=== PATIENT | female | born 1940 | race Caucasian/White ===

== ENCOUNTER 2019-05-19 15:05 | Inpatient (IN) | payer MEDICARE, BC ==
[~2019-05-19] VITALS: Ht 160 cm; Wt 87.5 kg
[2019-05-19] MEDS ORDERED: methylPREDNISolone sod succ 125mg/2ml vial IV ONE (15:15)
[2019-05-19] MEDS ORDERED: ipratropium/albuterol 3ml nebule NEB ONE (15:15)
[2019-05-19 15:41] LABS: ABG BASE EXCESS -0.2 mmol/L (-2.0-3.0); ABG HCO3 23.4 mmol/L (22.0-26.0); ABG OXYGEN SATURATION 93.9 % (95-98); ABG PCO2 (T) 35.4 mmHg (35.0-45.0); ABG PH (T) 7.439 (7.350-7.450); ABG PO2 (T) 66.4 mmHg (83-108); ALLEN'S TEST Positive; FCOHb 1.1 % (0.5-1.5); FMetHb 0.2 % (0.3-1.12); FO2Hb 92.7 % (94-100); TOTAL HEMOGLOBIN 14.9 G/dl (12.0-16.0)
[2019-05-19 16:13] LABS: BASOPHILS # (AUTO) 0.2 X10'3 (0-0.2); BASOPHILS % (AUTO) 1.3 % (0-1); EOSINOPHILS # (AUTO) 0.2 X10'3 (0-0.9); EOSINOPHILS % (AUTO) 1.8 % (0-6); HEMATOCRIT 41.9 % (35.0-45.0); HEMOGLOBIN 14.2 g/dl (12.0-16.0); LYMPHOCYTES # (AUTO) 1.5 X10'3 (1.1-4.8); LYMPHOCYTES % (AUTO) 11.2 % (21-51); MEAN CORPUSCULAR HEMOGLOBIN 30.2 PG (27.0-31.0); MEAN CORPUSCULAR VOLUME 88.7 FL (78-98); MEAN PLATELET VOLUME 7.2 FL (7.4-10.4); MONOCYTES # (AUTO) 1.3 X10'3 (0-0.9); NEUTROPHILS # (AUTO) 10.1 X10'3 (1.8-7.7); NEUTROPHILS % (AUTO) 75.7 % (42-75); PLATELET COUNT 354 X10'3 (140-440); RED BLOOD COUNT 4.72 X10'6 (4.20-5.60); RED CELL DISTRIBUTION WIDTH 12.9 % (11.5-14.5); WHITE BLOOD COUNT 13.3 X10'3 (4.5-11.0)
[2019-05-19] MEDS ORDERED: GABA-532 PO (16:13)
[2019-05-19] MEDS ORDERED: LOSA25TA96 PO (16:13)
[2019-05-19] MEDS ORDERED: DULO-31 PO (16:13)
[2019-05-19] MEDS ORDERED: azithromycin/NS 500mg/250ml 250 ML IV ONE (16:20)
[2019-05-19] MEDS ORDERED: CefTRIAXone/D5W-Rocephin 1gm 50 ML IV ONE (16:20)
[2019-05-19] MEDS ORDERED: normal saline 1000ML IV soln IVB ONE (16:25)
[2019-05-19 16:32] LABS: ALANINE AMINOTRANSFERASE 15 U/L (12-78); ALBUMIN/GLOBULIN RATIO 0.8 (1.1-1.5); ALKALINE PHOSPHATASE 84 IU/L (46-116); ANION GAP 7 (8-16); ASPARTATE AMINO TRANSFERASE 21 U/L (10-37); BILIRUBIN,TOTAL 0.6 MG/DL (0.1-1.0); BLOOD UREA NITROGEN 6 MG/DL (7-18); BUN/CREATININE RATIO 8.3 (6.6-38.0); CALCIUM 9.9 MG/DL (8.5-10.1); CHLORIDE 93 MMOL/L (99-107); CREATININE 0.72 MG/DL (0.40-0.90); GLUCOSE 105 MG/DL (70-104); POTASSIUM 3.8 MMOL/L (3.5-5.1); SODIUM 129 MMOL/L (135-145); TOTAL CARBON DIOXIDE 29.2 MMOL/L (24-32); eGFR 78 ML/MIN
[2019-05-19 16:34] LABS: D-DIMER 3.05 MG/L FEU (0-0.50); PARTIAL THROMBOPLASTIN TIME 30 SECONDS (22-32)
[2019-05-19] MEDS ORDERED: iohexol 350MG/ML 100ml bottle IV ONE (16:42)
--- NOTE | 2019-05-19 18:26 | NUR ---
Patient is in bed with family at bedside. Family updated on POC. Patient requests bedpan which is provided. Family and patient prefer to place her on bedpan themselves. Dr. Chauhan to bedside.
--- NOTE | 2019-05-19 18:48 | NUR ---
Patient's heart rate increased to 140s and she became short of breath when she was assisted to bedpan. Spoke to Dr. Sunshine about a villeda catheter until she has her pleural effusion drained which he agrees to.
[2019-05-19] MEDS ORDERED: magnesium 2GM in 50ml NS 50 ML IV PRN (20:05)
[2019-05-19] MEDS ORDERED: ipratropium/albuterol 3ml nebule NEB PRN ×2 (20:05)
[2019-05-19] MEDS ORDERED: magnesium 4gm in 100ml NS 100 ML IV PRN (20:05)
[2019-05-19] MEDS ORDERED: ondansetron/PF 4mg/2ml inj IV PRN (20:05)
[2019-05-19] MEDS ORDERED: magnesium Cl slow-release 64mg tablet PO PRN (20:05)
[2019-05-19] MEDS ORDERED: acetaminophen 325mg tablet PO PRN (20:05)
[2019-05-19] MEDS ORDERED: potassium Cl 20 mEq SR tablet PO PRN ×2 (20:05)
[2019-05-19] MEDS ORDERED: potassium CL 10mEq/100ml bag 100 ML IV PRN ×2 (20:05)
[2019-05-19] MEDS ORDERED: HYDROcodone/acetaminophen 5mg/325mg tablet PO PRN (20:05)
[2019-05-19] MEDS ORDERED: morphine 2 MG/ML inj. syringe IV PRN (20:05)
--- NOTE | 2019-05-19 20:11 | NUR ---
Patient resting comfortably in bed with family at bedside. She is hungry but doesn't feel like she can eat much. She requests jello which is provided. Patient and family updated on POC.
[2019-05-19 21:00] VITALS: BP 146/92
[2019-05-19] MEDS: famotidine 20mg tablet PO SCH (21:00)
--- NOTE | 2019-05-19 21:00 | NUR ---
Patient in room PCU 3012. I have received report from Mauro FERNANDEZ from ER before patient came up to unit and had the opportunity to ask questions and assume patient care. All personal affects in the closet, cellphone at bedside, patient is comfortable in bed and able to use call light appropriately.
[2019-05-19 22:00] VITALS: BP 146/87
[2019-05-20] VITALS (11 sets, daily range): BP systolic 103–170; BP diastolic 61–100
--- NOTE | 2019-05-20 05:00 | NUR ---
END NOC NOTE Patient has been able to sleep tonight with SCD on bilateral legs. Will continue to monitor.
[2019-05-20 06:16] LABS: BASOPHILS % (AUTO) 0.4 % (0-1); EOSINOPHILS % (AUTO) 0.1 % (0-6); HEMATOCRIT 43.6 % (35.0-45.0); HEMOGLOBIN 14.8 g/dl (12.0-16.0); LYMPHOCYTES # (AUTO) 0.8 X10'3 (1.1-4.8); LYMPHOCYTES % (AUTO) 6.6 % (21-51); MEAN CORPUSCULAR HEMOGLOBIN 30.4 PG (27.0-31.0); MEAN CORPUSCULAR VOLUME 89.3 FL (78-98); MEAN PLATELET VOLUME 7.7 FL (7.4-10.4); MONOCYTES # (AUTO) 0.8 X10'3 (0-0.9); MONOCYTES % (AUTO) 6.5 % (2-12); NEUTROPHILS # (AUTO) 10.4 X10'3 (1.8-7.7); NEUTROPHILS % (AUTO) 86.4 % (42-75); PLATELET COUNT 353 X10'3 (140-440); RED BLOOD COUNT 4.88 X10'6 (4.20-5.60); RED CELL DISTRIBUTION WIDTH 12.9 % (11.5-14.5); WHITE BLOOD COUNT 12.1 X10'3 (4.5-11.0)
[2019-05-20 06:21] LABS: ANION GAP 10 (8-16); BLOOD UREA NITROGEN 5 MG/DL (7-18); BUN/CREATININE RATIO 7.6 (6.6-38.0); CALCIUM 10.8 MG/DL (8.5-10.1); CHLORIDE 95 MMOL/L (99-107); CREATININE 0.66 MG/DL (0.40-0.90); GLUCOSE 142 MG/DL (70-104); MAGNESIUM 1.7 MG/DL (1.5-2.4); POTASSIUM 4.1 MMOL/L (3.5-5.1); SODIUM 133 MMOL/L (135-145); TOTAL CARBON DIOXIDE 28.1 MMOL/L (24-32); eGFR 87 ML/MIN
--- NOTE | 2019-05-20 06:27 | NUR ---
170/100 MD Thomas notified of the high blood pressure, she doesn't take any blood pressure medications at home, and he stated to pass on to morning hospitalist. Cora FERNANDEZ was passed on this information.
--- NOTE | 2019-05-20 06:29 | NUR ---
Patient in room PCU 3012C. I have received report from Ana Laura FERNANDEZ and had the opportunity to ask questions and assume patient care.
--- NOTE | 2019-05-20 06:52 | NUR ---
Problems reprioritized. Patient report given, questions answered & plan of care reviewed with Cora FERNANDEZ.
[2019-05-20] MEDS: CefTRIAXone/D5W-Rocephin 1gm 50 ML IV SCH (07:27)
[2019-05-20] MEDS: K and/or MAG REPLACEMENT MC SCH (07:44)
[2019-05-20] MEDS ORDERED: hydrALAZINE 20mg/ml inj. IV ONE (07:55)
[2019-05-20] MEDS: azithromycin/NS 500mg/250ml 250 ML IV SCH (08:16)
--- NOTE | 2019-05-20 08:48 | NUR ---
Paged RT for breathing treatment RE Jake Wesley 5082C. PRN breathing treatment please. Thank you!
[2019-05-20] MEDS ORDERED: NYSTATIN CREAM - 30GM TUBE TP SCH ×2 (11:20→20:00)
[2019-05-20] MEDS ORDERED: XAL0.005OS OP (11:36)
--- NOTE | 2019-05-20 11:41 | NUR ---
Patient in process of chest tube being placed.
--- NOTE | 2019-05-20 12:20 | NUR ---
Right chest tube inserted and connected to suction. Dressing CDI. Sample collected by IR. Will continue to monitor closely
--- NOTE | 2019-05-20 12:50 | NUR ---
Chest tube output 2200 ml, atrium changed. Will continue to monitor closely
--- NOTE | 2019-05-20 12:59 | NUR ---
Malnutrition consult "decreased appetite 1 week": Pt admit w/ SOB past 10 days found to have large L pleural effusion pending thoracentesis and possible CT placement today per MD note. Normal strength noted w/ no edema/wounds present. Per RN; pt PO 50% all except oatmeal at breakfast today. Current wt 87.5kg bed scale first pt admit. Poor PO likely r/t SOB. BMI 34.2; well-nourished per MD note. At this time pt does not meet minimum 2 malnutrition criteria. Will continue to monitor. Addendum: 05/20/19 at [address] Amended: Links added.
--- NOTE | 2019-05-20 13:30 | NUR ---
Patient chest tube atrium was not tidaling. pole incisor operator and this RN replaced suction tubing and assessed atrium. Output continued to to fill at slow, steady rate. Called IR and Kaylynn stated to clamp tube to allow patient's body to stabilize due to high output of 2200 cc in less than one hour, and they would come assess atrium. IR came and looked at the chest tube site, tubing, and atrium, and stated that the lack of tidaling in the chamber was fine. They unclamped the tube (after 45 minutes clamped) and said it was fine to keep unclamped. Patient is stable, work of breathing is much improved, and will continue to monitor.
--- NOTE | 2019-05-20 18:15 | NUR ---
Problems reprioritized. Patient report given, questions answered & plan of care reviewed with Pablo RN.
--- NOTE | 2019-05-20 18:16 | NUR ---
Patient in room PCU 3012. I have received report from Cora FERNANDEZ and had the opportunity to ask questions and assume patient care.
[2019-05-20] MEDS: famotidine 20mg tablet PO SCH (20:29)
[2019-05-20] MEDS: lactobacillus rhamnosus 10,000 MMU CELLS/CAPSULE PO SCH (20:29)
[2019-05-20] MEDS: NYSTATIN CREAM - 30GM TUBE TP SCH (20:30)
[2019-05-21 02:30] VITALS: BP 132/67
[2019-05-21 05:47] LABS: BASOPHILS # (AUTO) 0.1 X10'3 (0-0.2); BASOPHILS % (AUTO) 0.6 % (0-1); EOSINOPHILS # (AUTO) 0.2 X10'3 (0-0.9); EOSINOPHILS % (AUTO) 1.4 % (0-6); HEMATOCRIT 40.3 % (35.0-45.0); HEMOGLOBIN 13.6 g/dl (12.0-16.0); LYMPHOCYTES # (AUTO) 1.6 X10'3 (1.1-4.8); LYMPHOCYTES % (AUTO) 12.3 % (21-51); MEAN CORPUSCULAR HEMOGLOBIN 30.2 PG (27.0-31.0); MEAN CORPUSCULAR HGB CONC 33.9 g/dL (33.0-36.5); MEAN CORPUSCULAR VOLUME 89.3 FL (78-98); MEAN PLATELET VOLUME 7.3 FL (7.4-10.4); MONOCYTES # (AUTO) 1.7 X10'3 (0-0.9); MONOCYTES % (AUTO) 12.5 % (2-12); NEUTROPHILS # (AUTO) 9.8 X10'3 (1.8-7.7); NEUTROPHILS % (AUTO) 73.2 % (42-75); PLATELET COUNT 349 X10'3 (140-440); RED BLOOD COUNT 4.51 X10'6 (4.20-5.60); RED CELL DISTRIBUTION WIDTH 13.3 % (11.5-14.5); WHITE BLOOD COUNT 13.4 X10'3 (4.5-11.0)
[2019-05-21 06:01] LABS: ALBUMIN 2.6 G/DL (3.4-5.0); ANION GAP 6 (8-16); BLOOD UREA NITROGEN 10 MG/DL (7-18); BUN/CREATININE RATIO 14.9 (6.6-38.0); CHLORIDE 93 MMOL/L (99-107); CREATININE 0.67 MG/DL (0.40-0.90); GLUCOSE 101 MG/DL (70-104); MAGNESIUM 1.6 MG/DL (1.5-2.4); POTASSIUM 3.8 MMOL/L (3.5-5.1); SODIUM 127 MMOL/L (135-145); TOTAL CARBON DIOXIDE 27.6 MMOL/L (24-32); eGFR 85 ML/MIN
--- NOTE | 2019-05-21 06:14 | NUR ---
Patient in room PCU 3012C. I have received report from Pablo RN and had the opportunity to ask questions and assume patient care.
--- NOTE | 2019-05-21 06:23 | NUR ---
Problems reprioritized. Patient report given, questions answered & plan of care reviewed with Cora FERNANDEZ.
[2019-05-21 06:30] VITALS: BP 118/50
[2019-05-21] MEDS: CefTRIAXone/D5W-Rocephin 1gm 50 ML IV SCH (07:10)
[2019-05-21] MEDS: lactobacillus rhamnosus 10,000 MMU CELLS/CAPSULE PO SCH ×2 (07:10→20:13)
[2019-05-21] MEDS: NYSTATIN CREAM - 30GM TUBE TP SCH ×3 (07:10→20:14)
[2019-05-21] MEDS: K and/or MAG REPLACEMENT MC SCH (08:00)
[2019-05-21] MEDS: azithromycin/NS 500mg/250ml 250 ML IV SCH (08:50)
[2019-05-21 11:00] VITALS: BP 152/84
[2019-05-21 15:00] VITALS: BP 154/87
--- NOTE | 2019-05-21 15:42 | NUR ---
Paged Dr Chauhan regarding med rec PAGER ID: [phone] MESSAGE: Cora trinh [phone]. RE Jake Wesley 3012C. Med rec needs to be addressed for pharmacy, thank you!
--- NOTE | 2019-05-21 18:29 | NUR ---
Problems reprioritized. Patient report given, questions answered & plan of care reviewed with Daniel FERNANDEZ.
--- NOTE | 2019-05-21 18:47 | NUR ---
Patient in room PCU 3012. I have received report from Cora FERNANDEZ and had the opportunity to ask questions and assume patient care.
[2019-05-21 19:00] VITALS: BP 139/73
[2019-05-21] MEDS: famotidine 20mg tablet PO SCH (20:13)
[2019-05-21 23:00] VITALS: BP 141/77
[2019-05-22 02:30] VITALS: BP 145/78
[2019-05-22 05:57] LABS: BASOPHILS # (AUTO) 0.1 X10'3 (0-0.2); BASOPHILS % (AUTO) 0.7 % (0-1); EOSINOPHILS # (AUTO) 0.3 X10'3 (0-0.9); EOSINOPHILS % (AUTO) 2.3 % (0-6); HEMATOCRIT 39.4 % (35.0-45.0); HEMOGLOBIN 13.3 g/dl (12.0-16.0); LYMPHOCYTES # (AUTO) 1.3 X10'3 (1.1-4.8); LYMPHOCYTES % (AUTO) 11.4 % (21-51); MEAN CORPUSCULAR HEMOGLOBIN 30.1 PG (27.0-31.0); MEAN CORPUSCULAR HGB CONC 33.8 g/dL (33.0-36.5); MEAN CORPUSCULAR VOLUME 89.1 FL (78-98); MEAN PLATELET VOLUME 7.7 FL (7.4-10.4); MONOCYTES # (AUTO) 1.6 X10'3 (0-0.9); MONOCYTES % (AUTO) 13.4 % (2-12); NEUTROPHILS # (AUTO) 8.4 X10'3 (1.8-7.7); NEUTROPHILS % (AUTO) 72.2 % (42-75); PLATELET COUNT 232 X10'3 (140-440); RED BLOOD COUNT 4.43 X10'6 (4.20-5.60); WHITE BLOOD COUNT 11.6 X10'3 (4.5-11.0)
[2019-05-22 06:00] VITALS: BP 105/58
[2019-05-22 06:00] LABS: ALBUMIN 2.4 G/DL (3.4-5.0); ANION GAP 9 (8-16); BLOOD UREA NITROGEN 6 MG/DL (7-18); BUN/CREATININE RATIO 10.9 (6.6-38.0); CALCIUM 9.1 MG/DL (8.5-10.1); CHLORIDE 97 MMOL/L (99-107); CREATININE 0.55 MG/DL (0.40-0.90); GLUCOSE 91 MG/DL (70-104); MAGNESIUM 1.6 MG/DL (1.5-2.4); POTASSIUM 3.8 MMOL/L (3.5-5.1); SODIUM 134 MMOL/L (135-145); TOTAL CARBON DIOXIDE 27.8 MMOL/L (24-32); eGFR > 90 ML/MIN
--- NOTE | 2019-05-22 06:15 | NUR ---
Patient in room PCU 3012. I have received report from Daniel FERNANDEZ and had the opportunity to ask questions and assume patient care.
--- NOTE | 2019-05-22 06:24 | NUR ---
Problems reprioritized. Patient report given, questions answered & plan of care reviewed with Alpesh FERNANDEZ.
[2019-05-22] MEDS: CefTRIAXone/D5W-Rocephin 1gm 50 ML IV SCH (07:49)
[2019-05-22] MEDS: lactobacillus rhamnosus 10,000 MMU CELLS/CAPSULE PO SCH ×2 (07:50→21:57)
[2019-05-22] MEDS: NYSTATIN CREAM - 30GM TUBE TP SCH ×2 (07:50→22:03)
[2019-05-22] MEDS: K and/or MAG REPLACEMENT MC SCH (08:00)
[2019-05-22] MEDS: azithromycin/NS 500mg/250ml 250 ML IV SCH (08:44)
[2019-05-22 11:00] VITALS: BP 133/85
[2019-05-22 15:00] VITALS: BP 149/75
[2019-05-22] MEDS: losartan 25mg tablet PO SCH (16:57)
--- NOTE | 2019-05-22 17:29 | NUR ---
Problems reprioritized. Patient report given, questions answered & plan of care reviewed with Anisa FERNANDEZ.
[2019-05-22 18:00] VITALS: BP 122/74
--- NOTE | 2019-05-22 18:12 | NUR ---
Problems reprioritized. Patient report given, questions answered & plan of care reviewed with Dennis FERNANDEZ. Patient stable at transfer of care.
--- NOTE | 2019-05-22 18:19 | NUR ---
Patient in room PCU 3012. I have received report from Anisa FERNANDEZ and had the opportunity to ask questions and assume patient care.
[2019-05-22] MEDS: gabapentin 300mg capsule PO SCH (21:58)
[2019-05-22] MEDS: latanoprost 0.005% 2.5ml ophthalmic drops EACHEYE SCH (21:58)
[2019-05-22] MEDS: duloxetine 30mg CAPSULE.DR PO SCH (21:58)
[2019-05-22] MEDS: famotidine 20mg tablet PO SCH (21:58)
[2019-05-22 22:00] VITALS: BP 136/64
[2019-05-23 02:00] VITALS: BP 141/73
[2019-05-23 05:48] LABS: ALBUMIN 2.1 G/DL (3.4-5.0); ANION GAP 11 (8-16); BLOOD UREA NITROGEN 4 MG/DL (7-18); CALCIUM 9.3 MG/DL (8.5-10.1); CHLORIDE 98 MMOL/L (99-107); GLUCOSE 97 MG/DL (70-104); MAGNESIUM 1.7 MG/DL (1.5-2.4); SODIUM 134 MMOL/L (135-145); TOTAL CARBON DIOXIDE 24.8 MMOL/L (24-32); eGFR > 90 ML/MIN
[2019-05-23 05:50] LABS: POTASSIUM 3.9 MMOL/L (3.5-5.1)
[2019-05-23 06:00] VITALS: BP 124/67
--- NOTE | 2019-05-23 06:00 | NUR ---
Patient in room PCU 3012. I have received report from Daniel FERNANDEZ and had the opportunity to ask questions and assume patient care.
--- NOTE | 2019-05-23 06:27 | NUR ---
Problems reprioritized. Patient report given, questions answered & plan of care reviewed with Fanny FERNANDEZ.
[2019-05-23 06:35] LABS: BASOPHILS # (AUTO) 0.1 X10'3 (0-0.2); BASOPHILS % (AUTO) 0.7 % (0-1); EOSINOPHILS # (AUTO) 0.3 X10'3 (0-0.9); EOSINOPHILS % (AUTO) 2.7 % (0-6); HEMATOCRIT 40.3 % (35.0-45.0); HEMOGLOBIN 13.3 g/dl (12.0-16.0); LYMPHOCYTES # (AUTO) 1.3 X10'3 (1.1-4.8); LYMPHOCYTES % (AUTO) 11.2 % (21-51); MEAN CORPUSCULAR HEMOGLOBIN 29.7 PG (27.0-31.0); MEAN CORPUSCULAR VOLUME 89.9 FL (78-98); MONOCYTES # (AUTO) 1.4 X10'3 (0-0.9); MONOCYTES % (AUTO) 12.2 % (2-12); NEUTROPHILS # (AUTO) 8.3 X10'3 (1.8-7.7); NEUTROPHILS % (AUTO) 73.2 % (42-75); PLATELET COUNT 320 X10'3 (140-440); RED BLOOD COUNT 4.48 X10'6 (4.20-5.60); RED CELL DISTRIBUTION WIDTH 13.4 % (11.5-14.5); WHITE BLOOD COUNT 11.3 X10'3 (4.5-11.0)
[2019-05-23] MEDS: duloxetine 30mg CAPSULE.DR PO SCH ×2 (07:34→19:49)
[2019-05-23] MEDS: losartan 25mg tablet PO SCH (07:35)
[2019-05-23] MEDS: gabapentin 300mg capsule PO SCH ×2 (07:35→19:49)
[2019-05-23] MEDS: lactobacillus rhamnosus 10,000 MMU CELLS/CAPSULE PO SCH ×2 (07:35→19:49)
[2019-05-23] MEDS: CefTRIAXone/D5W-Rocephin 1gm 50 ML IV SCH (07:36)
[2019-05-23] MEDS: azithromycin/NS 500mg/250ml 250 ML IV SCH (07:36)
[2019-05-23] MEDS: NYSTATIN CREAM - 30GM TUBE TP SCH (07:39)
[2019-05-23] MEDS: K and/or MAG REPLACEMENT MC SCH (08:00)
[2019-05-23 11:00] VITALS: BP 117/59
[2019-05-23] MEDS ORDERED: iohexol 300mg/ml 100ml inj. ONE (12:12)
[2019-05-23 15:00] VITALS: BP 143/72
--- NOTE | 2019-05-23 17:50 | NUR ---
Called Tein BENITO [phone] to notify change in condition: new onset a-fib with RVR with HR @ 140-150s. Per MD no new orders, monitor patient. Suggested 12 lead to MD; okayed. Patient states no chest pain, no SOB, no dizziness or lightheadedness, no N/v. Will continue to monitor.
--- NOTE | 2019-05-23 18:15 | NUR ---
Patient in room PCU 3012. I have received report from Fanny FERNANDEZ and had the opportunity to ask questions and assume patient care. Patient is resting comfortably. Her daughter Lori is at bedside. She is feeling well despite being in A-fib. Will continue to monitor.
--- NOTE | 2019-05-23 18:30 | NUR ---
Problems reprioritized. Patient report given, questions answered & plan of care reviewed with Jennifer FERNANDEZ.
[2019-05-23 19:00] VITALS: BP 128/72
[2019-05-23] MEDS: latanoprost 0.005% 2.5ml ophthalmic drops EACHEYE SCH (19:48)
[2019-05-23] MEDS: nystatin 15 GM powder TP SCH (19:48)
[2019-05-23] MEDS: famotidine 20mg tablet PO SCH (20:02)
--- NOTE | 2019-05-23 20:48 | NUR ---
Paged Dr. Cheema PAGER ID: [phone] MESSAGE: Jennifer [facility] #[id number]. Dary Wesley [id number]. In A-fib, HR 110-140. Only heart med is losartan due 05/24 @ 0800. Would you like med to control HR? BP is 127/71 (map 83) Addendum: 05/23/19 at 2101 by Jennifer Almaguer RN Doctor Cheema will place orders for PO metoprolol and DNR code status.
[2019-05-23] MEDS ORDERED: metoprolol tartrate 1mg/ml inj IV PRN (21:00)
[2019-05-23] MEDS: metoprolol tartrate 25mg tablet PO SCH (21:09)
[2019-05-23 23:00] VITALS: BP 109/66
[2019-05-24 03:00] VITALS: BP 59/66
[2019-05-24 05:47] LABS: BASOPHILS # (AUTO) 0.1 X10'3 (0-0.2); BASOPHILS % (AUTO) 0.8 % (0-1); EOSINOPHILS # (AUTO) 0.3 X10'3 (0-0.9); HEMATOCRIT 38.9 % (35.0-45.0); LYMPHOCYTES # (AUTO) 1.4 X10'3 (1.1-4.8); LYMPHOCYTES % (AUTO) 9.9 % (21-51); MEAN CORPUSCULAR HEMOGLOBIN 30.1 PG (27.0-31.0); MEAN CORPUSCULAR HGB CONC 33.4 g/dL (33.0-36.5); MEAN PLATELET VOLUME 7.7 FL (7.4-10.4); MONOCYTES # (AUTO) 1.7 X10'3 (0-0.9); MONOCYTES % (AUTO) 12.4 % (2-12); NEUTROPHILS # (AUTO) 10.5 X10'3 (1.8-7.7); NEUTROPHILS % (AUTO) 74.9 % (42-75); PLATELET COUNT 361 X10'3 (140-440); RED BLOOD COUNT 4.32 X10'6 (4.20-5.60); RED CELL DISTRIBUTION WIDTH 13.5 % (11.5-14.5); WHITE BLOOD COUNT 13.9 X10'3 (4.5-11.0)
[2019-05-24 05:53] LABS: ALBUMIN 2.2 G/DL (3.4-5.0); ANION GAP 8 (8-16); BLOOD UREA NITROGEN 6 MG/DL (7-18); BUN/CREATININE RATIO 9.8 (6.6-38.0); CALCIUM 9.3 MG/DL (8.5-10.1); CHLORIDE 100 MMOL/L (99-107); CREATININE 0.61 MG/DL (0.40-0.90); GLUCOSE 97 MG/DL (70-104); MAGNESIUM 1.6 MG/DL (1.5-2.4); POTASSIUM 3.8 MMOL/L (3.5-5.1); SODIUM 136 MMOL/L (135-145); eGFR > 90 ML/MIN
[2019-05-24 06:00] VITALS: BP 104/68
--- NOTE | 2019-05-24 06:00 | NUR ---
Patient in room PCU 3012. I have received report from Jennifer FERNANDEZ and had the opportunity to ask questions and assume patient care.
--- NOTE | 2019-05-24 06:15 | NUR ---
Problems reprioritized. Patient report given, questions answered & plan of care reviewed with Lalit FERNANDEZ.
[2019-05-24] MEDS: lactobacillus rhamnosus 10,000 MMU CELLS/CAPSULE PO SCH (07:34)
[2019-05-24] MEDS: CefTRIAXone/D5W-Rocephin 1gm 50 ML IV SCH (07:34)
[2019-05-24] MEDS: gabapentin 300mg capsule PO SCH (07:35)
[2019-05-24] MEDS: duloxetine 30mg CAPSULE.DR PO SCH (07:35)
[2019-05-24] MEDS: losartan 25mg tablet PO SCH (07:37)
[2019-05-24] MEDS: metoprolol tartrate 25mg tablet PO SCH (07:37)
[2019-05-24 07:38] VITALS: BP 139/62
[2019-05-24] MEDS: K and/or MAG REPLACEMENT MC SCH (08:00)
[2019-05-24] MEDS: azithromycin/NS 500mg/250ml 250 ML IV SCH (08:35)
[2019-05-24] MEDS: nystatin 15 GM powder TP SCH (08:38)
[2019-05-24 11:00] VITALS: BP 126/60
--- NOTE | 2019-05-24 15:15 | NUR ---
Pt DC'd home with family on hospice care. IV's removed, canulas intact. Tele-box removed and returned to tele-tech. DC paperwork gone over with Pt and family. Hospice nurse, Angely, went over the hospice routine with family and Pt. Belongings gathered and sent with Pt. Pt wheeled down to lobby in wheel chair by family where they left in a private vehicle for home. Hospice team will meet with family at the household to set up hospice care.
--- NOTE | 2019-05-24 15:30 | NUR ---
Pt discharged at this time. Family with patient. Pt belongings with patient. Pt off unit.
== END 2019-05-24 15:30 | disposition hospice, inpatient (51) | DRG 180 ==
LOC: ER 15:06 → PCU 3S 22:56
PROVIDERS: ADMIT Internal Medicine; ATTEND Internal Medicine
PROC: B32T1ZZ Computerized Tomography (CT Scan) of Left Pulmonary Artery using Low Osmolar Contrast (ICD-10-PCS; 2019-05-19)
PROC: B3201ZZ Computerized Tomography (CT Scan) of Thoracic Aorta using Low Osmolar Contrast (ICD-10-PCS; 2019-05-19)
PROC: B32S1ZZ Computerized Tomography (CT Scan) of Right Pulmonary Artery using Low Osmolar Contrast (ICD-10-PCS; 2019-05-19)
PROC: 0W9930Z Drainage of Right Pleural Cavity with Drainage Device, Percutaneous Approach (ICD-10-PCS; 2019-05-20)
PROC: BW241ZZ Computerized Tomography (CT Scan) of Chest and Abdomen using Low Osmolar Contrast (ICD-10-PCS; principal; 2019-05-23)
DX: C34.11 Malignant neoplasm of upper lobe, right bronchus or lung (principal); R65.11 Systemic inflammatory response syndrome (SIRS) of non-infectious origin with acute organ dysfunction; J90 Pleural effusion, not elsewhere classified; J98.11 Atelectasis; I10 Essential (primary) hypertension; Z66 Do not resuscitate; F32.9 Major depressive disorder, single episode, unspecified; G62.9 Polyneuropathy, unspecified; Z85.820 Personal history of malignant melanoma of skin; Z86.011 Personal history of benign neoplasm of the brain; Z90.710 Acquired absence of both cervix and uterus; Z90.49 Acquired absence of other specified parts of digestive tract
CPT/HCPCS: 32557; 36415; 36600; 71045; 71260; 71275; 80048; 80053; 82803; 82948; 83605; 83615; 83735; 83880; 84484; 85018; 85025; 85379; 85610; 85730; 87040; 87081; 88108; 88305; 93005; 94640; 94760; 96365; 96375; 97110; 97116; 97161; 97530; 99285; G0378; J0360; J0456; J0696; J2930; Q9967